=== PATIENT | female | born 2000 | race Caucasian/White ===

== ENCOUNTER 2019-09-21 12:36 | Emergency (ER) | payer BC, OTHER ==
[~2019-09-21] VITALS: Ht 162.6 cm; Wt 65.5 kg
[2019-09-21] MEDS ORDERED: ONDANSETRON ODT 4 MG TAB.RAPDIS PO ONE (12:45)
[2019-09-21] MEDS ORDERED: silver sulfADIAZINE 1% CREAM 50GM JAR. TP ONE (12:45)
[2019-09-21 12:46] VITALS: BP 130/82
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
[2019-09-21] MEDS ORDERED: MORPHINE SULFATE 10 MG/ML SYRINGE. IM ONE (13:15)
[2019-09-21] MEDS ORDERED: SILV20CR14 TP (13:22)
[2019-09-21] MEDS ORDERED: HYDR-2765 PO (13:22)
== END 2019-09-21 14:00 | disposition home or self-care (01) ==
LOC: ER 12:36
DX: T23.202A Burn of second degree of left hand, unspecified site, initial encounter (principal); Z91.040 Latex allergy status; X15.2XXA Contact with hotplate, initial encounter; Y93.89 Activity, other specified; Y92.89 Other specified places as the place of occurrence of the external cause; Y99.8 Other external cause status
CPT/HCPCS: 96372; 99284; J2270; J3010; Q0162